=== PATIENT | male | born 1950 | race Caucasian/White ===

== ENCOUNTER → 2020-06-07 | Outpatient (CLI) | payer OTHER, MEDICARE | END | disposition home or self-care (01) | LOC: CFH 09:19 | PROVIDERS: ATTEND Family Medicine | DX: K40.90 Unilateral inguinal hernia, without obstruction or gangrene, not specified as recurrent (principal); K57.30 Diverticulosis of large intestine without perforation or abscess without bleeding; K86.89 Other specified diseases of pancreas | CPT/HCPCS: 74176 ==

== ENCOUNTER 2020-08-02 05:52 | Day surgery (SDC) | payer MEDICARE ==
[~2020-08-02] VITALS: Ht 167.6 cm; Wt 60.0 kg
[~2020-08-02 05:52] MED LIST: FISH OIL PO; MAGNESIUM PO; MULT-658 PO; PROBIOTIC; VITAMIN D3 PO
[2020-08-02] MEDS ORDERED: CHLORHEXIDINE 15 ML UDC MM STA (06:06)
[2020-08-02] MEDS ORDERED: CHLORHEXIDINE 15 ML UDC ONE (06:11)
[2020-08-02] MEDS ORDERED: LACTATED RINGERS 1,000 ML IV SCH (06:30)
[2020-08-02] MEDS ORDERED: BUPIVACAINE/PF-EPI 0.5% 1:200K ONE (06:54)
[2020-08-02] MEDS ORDERED: BACITRACIN 50,000 UNIT ONE (06:54)
[2020-08-02] MEDS ORDERED: MIDAZOLAM 1 MG/ML, 2ML ONE (07:09)
[2020-08-02] MEDS ORDERED: FENTANYL PF 100 MCG/2ML ONE ×2 (07:10)
[2020-08-02] MEDS ORDERED: BACITRACIN 50,000 UNIT IRRIG ONE (07:40)
[2020-08-02] MEDS ORDERED: BUPIVACAINE/PF-EPI 0.5% 1:200K INFIL ONE (07:40)
[2020-08-02] MEDS ORDERED: FENTANYL PF 100 MCG/2ML IV PRN (08:00)
[2020-08-02] MEDS ORDERED: ACETAMINOPHEN 325 MG TABLET PO PRN (08:00)
[2020-08-02] MEDS ORDERED: MEPERIDINE/PF 25MG/0.5ML IVPush PRN (08:00)
[2020-08-02] MEDS ORDERED: ONDANSETRON 2MG/ML, 2ML IVPush PRN (08:00)
[2020-08-02] MEDS ORDERED: OXYcodone 5 MG/5 ML ORAL.SOL UDC PO PRN (08:00)
== END 2020-08-02 10:30 | disposition home or self-care (01) ==
LOC: OUT 05:52
PROVIDERS: ATTEND Surgery Vascular Surgery
DX: K40.91 Unilateral inguinal hernia, without obstruction or gangrene, recurrent (principal); Z79.899 Other long term (current) drug therapy; Z87.891 Personal history of nicotine dependence; Z90.49 Acquired absence of other specified parts of digestive tract; Z98.52 Vasectomy status; Z98.890 Other specified postprocedural states; Z85.828 Personal history of other malignant neoplasm of skin
CPT/HCPCS: 49520; C1781; J2250; J3010; J7120